=== PATIENT | male | born 1975 | race Two or more races ===

== ENCOUNTER 2020-02-26 08:00 | Observation (INO) | payer SELFPAY ==
[~2020-02-26] VITALS: Ht 170.2 cm; Wt 96.4 kg
--- NOTE | 2020-02-26 08:12 | PHYS DOC ---
General Adult HPI: HPI: Patient is a 44 year old male presenting to the ED with a chief complaint of chest pressure. 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 Patient states that he has a history of hypertension and drinks alcohol daily. Patient states that the pain is in the left side of his chest radiating up his left jaw and left upper extremity. Patient states that currently the pain is not intense but that he can still feel it in his chest. Patient denies nausea, shortness of breath, sweating. EMS state that he was given Aspirin 324 mg PATIENT ESCORT to ED. Review of Systems: Review of Systems: Constitutional: Denies fever or chills. [] Eyes: Denies change in visual acuity. [] HENT: Denies nasal congestion or sore throat. [] Respiratory: Denies cough or shortness of breath. [] Cardiovascular: Complains of chest pain. [] GI: Denies abdominal pain, nausea, vomiting, bloody stools or diarrhea. [] : Denies dysuria. [] Musculoskeletal: Denies back pain or joint pain. [] Integument: Denies rash. [] Neurologic: Denies headache, focal weakness or sensory changes. [] Heart Score: HEART Score for Chest Pain: HEART Score for Chest Pain Response (Comments) Value History Highly Suspicious 2 ECG Normal 0 Age >45 - < 65 1 Risk Factors 1 or 2 Risk Factors 1 Troponin < Normal Limit 0 Total 4 Risk Factors: Risk Factors: DM, Current or recent (<one month) smoker, HTN, HLP, family history of CAD, obesity. Risk Scores: Score 0 - 3: 2.5% MACE over next 6 weeks - Discharge Home Score 4 - 6: 20.3% MACE over next 6 weeks - Admit for Clinical Observation Score 7 - 10: 72.7% MACE over next 6 weeks - Early Invasive Strategies Physical Exam: PE: Constitutional: Well developed, well nourished, no acute distress, non-toxic appearance. [] HENT: Normocephalic, atraumatic Eyes: EOMI Neck: Normal range of motion, Supple Cardiovascular:Heart rate regular rhythm Lungs & Thorax: Bilateral breath sounds clear to auscultation [] Abdomen: Bowel sounds normal, soft, no tenderness Extremities: No tenderness, ROM intact Neurologic: Alert and oriented X 3 EKG: EKG: EKG interpretation: 8: 04 AM on 02/26/2020 HR: 58 Sinus rhythm Regular intervals Leftward axis Nonspecific ST changes No STEMI Radiology/Procedures: Radiology/Procedures: [] Impression: Chest x-ray shows no acute cardiopulmonary process. Course & Med Decision Making: Course & Med Decision Making Pertinent Labs and Imaging studies reviewed. (See chart for details) EKG shows no acute changes. Labs are within normal limits. Troponin is negative. Chest x-ray shows no acute disease. Discussed results and plan of care with patient. Patient states that the pain started about 2 hours prior to arrival to the ER. Patient has never had a stress test. I think patient should be admitted to observation to get a cardiac stress test. We will discuss case with hospitalist service. Discussed case with Dr Zhang who accepts admission. Jessie Disclaimer: Jessie Disclaimer: This electronic medical record was generated, in whole or in part, using a voice recognition dictation system. Departure Departure Impression: Primary Impression: Chest pain Disposition: ADMITTED INPATIENT Admitting Physician: HUMA Condition: STABLE Justicifation of Admission Dx: Justifications for Admission: Justification of Admission Dx: Yes Angina: New-Onset MELISSA HUTCHISON DO Feb 26, 2020 08:12
[2020-02-26 08:18] LABS: BASO % 1 % (0-3); EOS # 0.3 x10^3/uL (0.0-0.7); EOS % 5 % (0-3); HEMATOCRIT 43.3 % (39.0-53.0); HEMOGLOBIN 15.2 g/dL (13.0-17.5); LYMPH # 1.8 x10^3/uL (1.0-4.8); LYMPH % 30 % (24-48); MEAN CORPUSCULAR HEMOGLOBIN 32 pg (25-35); MEAN CORPUSCULAR HGB CONC 35 g/dL (31-37); MEAN CORPUSCULAR VOLUME 91 fL (79-100); MONO # 0.4 x10^3/uL (0.0-1.1); MONO % 6 % (0-9); NEUT # 3.5 x10^3/uL (1.8-7.7); NEUT % 59 % (31-73); PLATELET COUNT 218 x10^3/uL (140-400); RED BLOOD COUNT 4.77 x10^6/uL (4.30-5.70); RED CELL DISTRIBUTION WIDTH 13.4 % (11.5-14.5); WHITE BLOOD COUNT 5.9 x10^3/uL (4.0-11.0)
[2020-02-26 08:27] LABS: PROTHROMBIN TIME PATIENT 12.3 SEC (11.7-14.0)
[2020-02-26 08:29] LABS: CALCIUM 8.6 mg/dL (8.5-10.1); CREATININE 1.1 mg/dL (0.7-1.3); GFR 72.4
[2020-02-26 08:35] LABS: ALBUMIN/GLOBULIN RATIO 1.1 (1.0-1.7); TOTAL BILIRUBIN 0.5 mg/dL (0.2-1.0); TOTAL PROTEIN 7.7 g/dL (6.4-8.2)
--- NOTE | 2020-02-26 08:40 | RAD ---
CHEST PA LATERAL History: Reason: chest pain / Spl. Instructions: / History: Comparison: None. Findings: No consolidation or pleural effusion. Normal heart size. No pneumothorax. Impression: 1. No acute cardiopulmonary process. Electronically signed by: Sharif Medina DO (02/26/2020 8:37 AM) [id number]
--- NOTE | 2020-02-26 09:33 | PDOC1 ---
History and Physical Date of Admission Date of Admission DATE: 02/26/20 TIME: 09:32 Identification/Chief Complaint Chief Complaint Chest pain Source Source: Patient History of Present Illness History of Present Illness Mr. 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 He was given ASA 325 mg in route and pain resolved. Pain did not radiate no associated shortness of breath he has never had an episode like this before. No family hi story of CAD that he knows of though his mother does have hypertension. Initial EKG was NSR and troponin negative. On ROS he drinks 11 [place] Light cans per day. Non-smoker. Past Medical History Cardiovascular: HTN Past Surgical History Past Surgical History: Other (Right eye) Family History Family History: Hypertension Social History Smoke: No ALCOHOL: heavy Drugs: None Current Problem List Problem List Problems Medical Problems: (1) Chest pain Status: Acute Allergies Allergies: Coded Allergies: No Known Drug Allergies (Unverified , 02/26/20) ROS General: No: Chills, Night Sweats, Fatigue, Malaise, Appetite, Other PSYCHOLOGICAL ROS: No: Anxiety, Behavioral Disorder, Concentration difficultie, Decreased libido, Depression, Disorientation, Hallucinations, Hostility, Irritablity, Memory difficulties, Mood Swings, Obsessive thoughts, Physical abuse, Sexual abuse, Sleep disturbances, Suicidal ideation, Other Eyes: No Blurry vision, No Decreased vision, No Double vision, No Dry eyes, No Excessive tearing, No Eye Pain, No Itchy Eyes, No Loss of vision, No Photophobia, No Scotomata, No Uses contacts, No Uses glasses, No Other HEENT: No: Heacaches, Visual Changes, Hearing change, Nasal congestion, Nasal discharge, Oral lesions, Sinus pain, Sore Throat, Epistaxis, Sneezing, Snoring, Tinnitus, Vertigo, Vocal changes, Other ALLERGY AND IMMUNOLOGY: No: Hives, Insect Bite Sensitivity, Itchy/Watery Eyes, Nasal Congestion, Post Nasal Drip, Seasonal Allergies, Other Hematological and Lymphatic: No: Bleeding Problems, Blood Clots, Blood Transfusions, Brusing, Night Sweats, Pallor, Swollen Lymph Nodes, Other ENDOCRINE: No: Breast Changes, Galactorrhea, Hair Pattern Changes, Hot Flashes, Malaise/lethargy, Mood Swings, Palpitations, Polydipsia/polyuria, Skin Changes, Temperature Intolerance, Unexpected Weight Changes, Other Breast: No New/Changing Breast Lumps, No Nipple changes, No Nipple discharge, No Other Respiratory: No: Cough, Hemoptysis, Orthopnea, Pleuritic Pain, Shortness of breath, SOB with excertion, Sputum Changes, Stridor, Tachypnea, Wheezing, Other Cardiovascular: No Chest Pain, No Palpitations, No Orthopnea, No Paroxysmal Noc. Dyspnea, No Edema, No Lt Headedness, No Other Gastrointestinal: No Nausea, No Vomiting, No Abdominal Pain, No Diarrhea, No Constipation, No Melena, No Hematochezia, No Other Genitourinary: No Dysuria, No Frequency, No Incontinence, No Hematuria, No Retention, No Discharge, No Urgency, No Pain, No Flank Pain, No Other, No , No , No , No , No , No , No Musculoskeletal: No Gait Disturbance, No Joint Pain, No Joint Stiffness, No Joint Swelling, No Muscle Pain, No Muscular Weakness, No Pain In:, No Swelling In:, No Other Neurological: No Behavorial Changes, No Bowel/Bladder ControlChng, No Confusion, No Dizziness, No Gait Disturbance, No Headaches, No Impaired Coord/balance, No Memory Loss, No Numbness/Tingling, No Seizures, No Speech Problems, No Tremors, No Visual Changes, No Weakness, No Other Skin: No Dry Skin, No Eczema, No Hair Changes, No Lumps, No Mole Changes, No Mottling, No Nail Changes, No Pruritus, No Rash, No Skin Lesion Changes, No Other, No Acne Physical Exam General: Alert, Oriented X3, Cooperative, No acute distress HEENT: Atraumatic, PERRLA, EOMI, Mucous membr. moist/pink Lungs: Clear to auscultation, Normal air movement Heart: S1S2, RRR, no thrills, no rubs, no gallops, no murmurs Abdomen: Normal bowel sounds, Soft, No tenderness, No hepatosplenomegaly, No masses Rectal Exam: not examined Extremities: No clubbing, No cyanosis, No edema, Normal pulses, No tenderness/swelling Skin: No rashes, No breakdown, No significant lesion Neuro: Normal gait, Normal speech, Strength at 5/5 X4 ext, Normal tone, Sensation intact, Cranial nerves 3-12 NL, Reflexes 2+ Psych/Mental Status: Mental status NL, Mood NL Vitals Vitals Vital Signs Date Time Temp Pulse Resp B/P (MAP) Pulse Ox O2 Delivery O2 Flow Rate FiO2 02/26/20 08:00 98.2 57 20 163/88 (113) 98 Room Air 98.2 Labs Labs Laboratory Tests Test 02/26/20 08:12 White Blood Count 5.9 x10^3/uL (4.0-11.0) Red Blood Count 4.77 x10^6/uL (4.30-5.70) Hemoglobin 15.2 g/dL (13.0-17.5) Hematocrit 43.3 % (39.0-53.0) Mean Corpuscular Volume 91 fL (79-100) Mean Corpuscular Hemoglobin 32 pg (25-35) Mean Corpuscular Hemoglobin Concent 35 g/dL (31-37) Red Cell Distribution Width 13.4 % (11.5-14.5) Platelet Count 218 x10^3/uL (140-400) Neutrophils (%) (Auto) 59 % (31-73) Lymphocytes (%) (Auto) 30 % (24-48) Monocytes (%) (Auto) 6 % (0-9) Eosinophils (%) (Auto) 5 % (0-3) Basophils (%) (Auto) 1 % (0-3) Neutrophils # (Auto) 3.5 x10^3/uL (1.8-7.7) Lymphocytes # (Auto) 1.8 x10^3/uL (1.0-4.8) Monocytes # (Auto) 0.4 x10^3/uL (0.0-1.1) Eosinophils # (Auto) 0.3 x10^3/uL (0.0-0.7) Basophils # (Auto) 0.0 x10^3/uL (0.0-0.2) Prothrombin Time 12.3 SEC (11.7-14.0) Prothromb Time International Ratio 1.0 (0.8-1.1) Sodium Level 139 mmol/L (136-145) Potassium Level 4.0 mmol/L (3.5-5.1) Chloride Level 104 mmol/L (98-107) Carbon Dioxide Level 25 mmol/L (21-32) Anion Gap 10 (6-14) Blood Urea Nitrogen 13 mg/dL (8-26) Creatinine 1.1 mg/dL (0.7-1.3) Estimated GFR (Cockcroft-Gault) 72.4 BUN/Creatinine Ratio 12 (6-20) Glucose Level 166 mg/dL (70-99) Calcium Level 8.6 mg/dL (8.5-10.1) Total Bilirubin 0.5 mg/dL (0.2-1.0) Aspartate Amino Transf (AST/SGOT) 32 U/L (15-37) Alanine Aminotransferase (ALT/SGPT) 25 U/L (16-63) Alkaline Phosphatase 57 U/L (46-116) Troponin I Quantitative < 0.017 ng/mL (0.000-0.055) VU-Oye-A-Type Natriuretic Peptide 29 pg/mL (0-124) Total Protein 7.7 g/dL (6.4-8.2) Albumin 4.0 g/dL (3.4-5.0) Albumin/Globulin Ratio 1.1 (1.0-1.7) Lipase 156 U/L (73-393) Laboratory Tests Test 02/26/20 08:12 White Blood Count 5.9 x10^3/uL (4.0-11.0) Red Blood Count 4.77 x10^6/uL (4.30-5.70) Hemoglobin 15.2 g/dL (13.0-17.5) Hematocrit 43.3 % (39.0-53.0) Mean Corpuscular Volume 91 fL (79-100) Mean Corpuscular Hemoglobin 32 pg (25-35) Mean Corpuscular Hemoglobin Concent 35 g/dL (31-37) Red Cell Distribution Width 13.4 % (11.5-14.5) Platelet Count 218 x10^3/uL (140-400) Neutrophils (%) (Auto) 59 % (31-73) Lymphocytes (%) (Auto) 30 % (24-48) Monocytes (%) (Auto) 6 % (0-9) Eosinophils (%) (Auto) 5 % (0-3) Basophils (%) (Auto) 1 % (0-3) Neutrophils # (Auto) 3.5 x10^3/uL (1.8-7.7) Lymphocytes # (Auto) 1.8 x10^3/uL (1.0-4.8) Monocytes # (Auto) 0.4 x10^3/uL (0.0-1.1) Eosinophils # (Auto) 0.3 x10^3/uL (0.0-0.7) Basophils # (Auto) 0.0 x10^3/uL (0.0-0.2) Prothrombin Time 12.3 SEC (11.7-14.0) Prothromb Time International Ratio 1.0 (0.8-1.1) Sodium Level 139 mmol/L (136-145) Potassium Level 4.0 mmol/L (3.5-5.1) Chloride Level 104 mmol/L (98-107) Carbon Dioxide Level 25 mmol/L (21-32) Anion Gap 10 (6-14) Blood Urea Nitrogen 13 mg/dL (8-26) Creatinine 1.1 mg/dL (0.7-1.3) Estimated GFR (Cockcroft-Gault) 72.4 BUN/Creatinine Ratio 12 (6-20) Glucose Level 166 mg/dL (70-99) Calcium Level 8.6 mg/dL (8.5-10.1) Total Bilirubin 0.5 mg/dL (0.2-1.0) Aspartate Amino Transf (AST/SGOT) 32 U/L (15-37) Alanine Aminotransferase (ALT/SGPT) 25 U/L (16-63) Alkaline Phosphatase 57 U/L (46-116) Troponin I Quantitative < 0.017 ng/mL (0.000-0.055) WF-Ltx-W-Type Natriuretic Peptide 29 pg/mL (0-124) Total Protein 7.7 g/dL (6.4-8.2) Albumin 4.0 g/dL (3.4-5.0) Albumin/Globulin Ratio 1.1 (1.0-1.7) Lipase 156 U/L (73-393) Images Images CXR - No consolidation or pleural effusion. Normal heart size. No pneumothorax. Impression: 1. No acute cardiopulmonary process. VTE Prophylaxis Ordered VTE Prophylaxis Devices: No VTE Pharmacological Prophylaxi: No Assessment/Plan Assessment/Plan A/P: Chest pain - improved with ASA, no further pain Alcohol use disorder - drinking 11 bud light cans per day, counseled on cutting back, no hx of withdrawal, he will cut back Obesity - counseled on weight loss, diet exercise FEN - PPX - SCDs FULL CODE Dispo - observation for chest pain Justicifation of Admission Dx: Justifications for Admission: Justification of Admission Dx: N/A Angina: New-Onset FOSTER BUSTOS MD Feb 26, 2020 09:33
[2020-02-26] MEDS ORDERED: DEXTROSE 50% 25 GM / 50ML DISP.SYRIN. IV PRN (09:45)
[2020-02-26 10:25] VITALS: BP 121/73
--- NOTE | 2020-02-26 10:30 | NUR ---
Patient arrived to room 261 via wheelchair from ER at 1030. Patient A&OX4. VSS. No complaints of pain at this time. The patient, REYNA PEARL, 44 y/o, M admitted by FOSTER BUSTOS MD, was given written information regarding hospital policies, unit procedures and contact persons. Valuables were checked and noted. Will continue to monitor.
--- NOTE | 2020-02-26 11:18 | EKG ---
[facility] [address] [place] [address] Test Date: 2020-02-26 Test Time: 08:04:06 Pat Name: REYNA PEARL Department: Room: Gender: M System Software Programmer: : 1975 Requested By: MELISSA HUTCHISON Order Number: [id number] Reading MD: Measurements Intervals [place] Rate: 58 P: 38 SC: 136 QRS: -28 QRSD: 92 T: 14 QT: 450 QTc: 441 Interpretive Statements SINUS RHYTHM LEFTWARD AXIS S1,S2,S3 PATTERN QRS(T) CONTOUR ABNORMALITY CONSIDER ANTEROSEPTAL MYOCARDIAL DAMAGE CONSIDER INFERIOR MYOCARDIAL DAMAGE POSSIBLY ABNORMAL ECG RI6.01 No previous ECG available for comparison
[2020-02-26] MEDS: INSULIN LISPRO 300 UNITS/3 ML VIAL. SQ SCH ×3 (11:30→21:00)
--- NOTE | 2020-02-26 11:39 | PDOC2 ---
AUGUST WINKLER CUSTOMER PROFESSIONAL 02/26/20 1139: CARDIAC CONSULT DATE OF CONSULT Date of Consult DATE: 02/26/20 TIME: 11:35 REASON FOR CONSULT Reason for Consult: Chest pain REFERRING PHYSICIAN Referring Physician: Dr. Zhang SOURCE Source: Chart review, Patient HISTORY OF PRESENT ILLNESS HISTORY OF PRESENT ILLNESS This is a 44 yo male who presented secondary to chest pain. Patient reports pain began this morning about 7:30 am. Located in his left chest. Describes as pressure. Radiated down his left arm. Associated with diaphoresis, shortness of breath, and mild nausea. No palpitations or dizziness. Pain did not resolved so he can to the ED for further evaluation and treatment. Cannot recall how duration of pain. Presently CP free. 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 PAST MEDICAL HISTORY Cardiovascular: HTN GI: GERD PAST SURGICAL HISTORY Past Surgical History: No pertinent history FAMILY HISTORY Family History: Other (noncontributory ) SOCIAL HISTORY Smoke: No ALCOHOL: other (6 beers per day) Drugs: None Lives: Alone ALLERGIES ALLERGIES: Coded Allergies: No Known Drug Allergies (Unverified , 02/26/20) ROS Review of System 14 point ROS conducted with pertinent positives noted above in HPI. PHYSICAL EXAM General: Alert, Oriented X3, Cooperative, No acute distress HEENT: Atraumatic, Mucous membr. moist/pink Lungs: Clear to auscultation, Normal air movement Heart: Regular rate Abdomen: Soft, No hepatosplenomegaly Extremities: No edema, Normal pulses Skin: No breakdown, No significant lesion Neuro: Normal speech, Sensation intact Psych/Mental Status: Mental status NL, Mood NL MUSCULOSKELETAL: No deformity VITALS/I&O VITALS/I&O: Vital Signs Date Time Temp Pulse Resp B/P (MAP) Pulse Ox O2 Delivery O2 Flow Rate FiO2 02/26/20 10:20 55 20 127/44 (71) 99 Room Air 02/26/20 08:00 98.2 98.2 LABS Lab: Laboratory Tests Test 02/26/20 08:12 White Blood Count 5.9 x10^3/uL (4.0-11.0) Red Blood Count 4.77 x10^6/uL (4.30-5.70) Hemoglobin 15.2 g/dL (13.0-17.5) Hematocrit 43.3 % (39.0-53.0) Mean Corpuscular Volume 91 fL (79-100) Mean Corpuscular Hemoglobin 32 pg (25-35) Mean Corpuscular Hemoglobin Concent 35 g/dL (31-37) Red Cell Distribution Width 13.4 % (11.5-14.5) Platelet Count 218 x10^3/uL (140-400) Neutrophils (%) (Auto) 59 % (31-73) Lymphocytes (%) (Auto) 30 % (24-48) Monocytes (%) (Auto) 6 % (0-9) Eosinophils (%) (Auto) 5 % (0-3) H Basophils (%) (Auto) 1 % (0-3) Neutrophils # (Auto) 3.5 x10^3/uL (1.8-7.7) Lymphocytes # (Auto) 1.8 x10^3/uL (1.0-4.8) Monocytes # (Auto) 0.4 x10^3/uL (0.0-1.1) Eosinophils # (Auto) 0.3 x10^3/uL (0.0-0.7) Basophils # (Auto) 0.0 x10^3/uL (0.0-0.2) Prothrombin Time 12.3 SEC (11.7-14.0) Prothrombin Time INR 1.0 (0.8-1.1) Sodium Level 139 mmol/L (136-145) Potassium Level 4.0 mmol/L (3.5-5.1) Chloride Level 104 mmol/L (98-107) Carbon Dioxide Level 25 mmol/L (21-32) Anion Gap 10 (6-14) Blood Urea Nitrogen 13 mg/dL (8-26) Creatinine 1.1 mg/dL (0.7-1.3) Estimated GFR (Cockcroft-Gault) 72.4 BUN/Creatinine Ratio 12 (6-20) Glucose Level 166 mg/dL (70-99) H Calcium Level 8.6 mg/dL (8.5-10.1) Total Bilirubin 0.5 mg/dL (0.2-1.0) Aspartate Amino Transferase (AST) 32 U/L (15-37) Alanine Aminotransferase (ALT) 25 U/L (16-63) Alkaline Phosphatase 57 U/L (46-116) Troponin I Quantitative < 0.017 ng/mL (0.000-0.055) UN-Mmh-E-Type Natriuretic Peptide 29 pg/mL (0-124) Total Protein 7.7 g/dL (6.4-8.2) Albumin 4.0 g/dL (3.4-5.0) Albumin/Globulin Ratio 1.1 (1.0-1.7) Lipase 156 U/L (73-393) Laboratory Tests 02/26/20 08:12 Laboratory Tests 02/26/20 08:12 ASSESSMENT/PLAN ASSESSMENT/PLAN 1. Chest pain,mixed features; initial trop negative 2. Hypertension; controlled 3. Bradycardia, sinus; lowest 49 noted. No pauses 4. GERD 5. ETOH misuse; 6 beers daily Recommendations Trend trop Lipids ASA Echo to assess LV systolic function Avoid AV sofy blocking agents. Further pending above. MARLEN HYMAN MD 02/26/20 1707: CARDIAC CONSULT ASSESSMENT/PLAN ASSESSMENT/PLAN Patient seen and examined. Agree with PIPE AND TEST SUPERVISOR's assessment and plan. Chest pain with mixed features. Cardiac enzymes negative so far. Agree with 2D echo to assess LV function and rule out wall motion abnormalities. Ischemic work-up could be considered as an outpatient. Monitor telemetry for evidence for SSS Thank you for your consultation. AUGUST WINKLER APRN Feb 26, 2020 11:39 MARLEN HYMAN MD Feb 26, 2020 17:07
[2020-02-26] MEDS ORDERED: LISI-334 PO (11:57)
[2020-02-26] MEDS ORDERED: METO25TA4 PO (11:57)
[2020-02-26 12:10] LABS: CHOLESTEROL/HDL RATIO 4.4
[2020-02-26 15:00] VITALS: BP 124/83
[2020-02-26 19:56] VITALS: BP 128/78
[2020-02-26 22:19] VITALS: BP 134/80
--- NOTE | 2020-02-26 22:23 | NUR ---
bs 83, snack given, no sliding scale. arnold
[2020-02-27 00:07] LABS: HEMOGLOBIN A1C 5.4 % (4.8-5.6)
[2020-02-27 02:29] VITALS: BP 136/84
[2020-02-27 07:00] VITALS: BP 141/88
[2020-02-27] MEDS: INSULIN LISPRO 300 UNITS/3 ML VIAL. SQ SCH ×2 (07:30→11:30)
--- NOTE | 2020-02-27 09:25 | PDOC ---
PROGRESS NOTES Chief Complaint Chief Complaint A/P: Chest pain - improved with ASA, no further pain Alcohol use disorder - drinking 11 bud light cans per day, counseled on cutting back, no hx of withdrawal, he will cut back Obesity - counseled on weight loss, diet exercise FEN - PPX - SCDs FULL CODE Dispo - observation for chest pain History of Present Illness History of Present Illness Mr. 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 He was given ASA 325 mg in route and pain resolved. Pain did not radiate no associated shortness of breath he has never had an episode like this before. No family history of CAD that he knows of though his mother does have hypertension. Initial EKG was NSR and troponin negative. On ROS he drinks 11 [place] Light cans per day. Non-smoker. A1c 5.4. Troponin x3 negative. CP free. Wishes for home d/c. Echo: The left ventricular systolic function is normal and the ejection fraction is within normal range. The Ejection Fraction is 50-55%. There is normal LV segmental wall motion. Instructed to hold his metoprolol due to persistent bradycardia Consults: Cardiology Vitals Vitals Vital Signs Date Time Temp Pulse Resp B/P (MAP) Pulse Ox O2 Delivery O2 Flow Rate FiO2 02/27/20 07:00 97.6 57 16 141/88 (105) 95 Room Air 97.6 Physical Exam General: Alert, Oriented X3, Cooperative, No acute distress Heart: Regular rate Abdomen: Soft, No hepatosplenomegaly Extremities: No edema, Normal pulses Skin: No breakdown, No significant lesion Labs LABS Laboratory Tests Test 02/26/20 11:42 02/26/20 12:18 02/26/20 17:39 02/26/20 19:00 Troponin I Quantitative < 0.017 ng/mL (0.000-0.055) < 0.017 ng/mL (0.000-0.055) Glucose (Fingerstick) 101 mg/dL (70-99) 151 mg/dL (70-99) Test 02/26/20 21:37 02/27/20 08:16 Glucose (Fingerstick) 83 mg/dL (70-99) 112 mg/dL (70-99) Assessment and Plan Assessmemt and Plan Problems Medical Problems: (1) Chest pain Status: Acute Comment Review of Relevant I have reviewed the following items ofe (where applicable) has been applied. Labs Laboratory Tests Test 02/26/20 08:12 02/26/20 11:42 02/26/20 12:18 02/26/20 17:39 White Blood Count 5.9 x10^3/uL (4.0-11.0) Red Blood Count 4.77 x10^6/uL (4.30-5.70) Hemoglobin 15.2 g/dL (13.0-17.5) Hematocrit 43.3 % (39.0-53.0) Mean Corpuscular Volume 91 fL (79-100) Mean Corpuscular Hemoglobin 32 pg (25-35) Mean Corpuscular Hemoglobin Concent 35 g/dL (31-37) Red Cell Distribution Width 13.4 % (11.5-14.5) Platelet Count 218 x10^3/uL (140-400) Neutrophils (%) (Auto) 59 % (31-73) Lymphocytes (%) (Auto) 30 % (24-48) Monocytes (%) (Auto) 6 % (0-9) Eosinophils (%) (Auto) 5 % (0-3) Basophils (%) (Auto) 1 % (0-3) Neutrophils # (Auto) 3.5 x10^3/uL (1.8-7.7) Lymphocytes # (Auto) 1.8 x10^3/uL (1.0-4.8) Monocytes # (Auto) 0.4 x10^3/uL (0.0-1.1) Eosinophils # (Auto) 0.3 x10^3/uL (0.0-0.7) Basophils # (Auto) 0.0 x10^3/uL (0.0-0.2) Prothrombin Time 12.3 SEC (11.7-14.0) Prothromb Time International Ratio 1.0 (0.8-1.1) Sodium Level 139 mmol/L (136-145) Potassium Level 4.0 mmol/L (3.5-5.1) Chloride Level 104 mmol/L (98-107) Carbon Dioxide Level 25 mmol/L (21-32) Anion Gap 10 (6-14) Blood Urea Nitrogen 13 mg/dL (8-26) Creatinine 1.1 mg/dL (0.7-1.3) Estimated GFR (Cockcroft-Gault) 72.4 BUN/Creatinine Ratio 12 (6-20) Glucose Level 166 mg/dL (70-99) Hemoglobin A1c 5.4 % (4.8-5.6) Calcium Level 8.6 mg/dL (8.5-10.1) Total Bilirubin 0.5 mg/dL (0.2-1.0) Aspartate Amino Transf (AST/SGOT) 32 U/L (15-37) Alanine Aminotransferase (ALT/SGPT) 25 U/L (16-63) Alkaline Phosphatase 57 U/L (46-116) Troponin I Quantitative < 0.017 ng/mL (0.000-0.055) < 0.017 ng/mL (0.000-0.055) NJ-Gib-T-Type Natriuretic Peptide 29 pg/mL (0-124) Total Protein 7.7 g/dL (6.4-8.2) Albumin 4.0 g/dL (3.4-5.0) Albumin/Globulin Ratio 1.1 (1.0-1.7) Triglycerides Level 162 mg/dL (0-150) Cholesterol Level 151 mg/dL (0-200) LDL Cholesterol, Calculated 85 mg/dL (0-100) VLDL Cholesterol, Calculated 32 mg/dL (0-40) Non-HDL Cholesterol Calculated 117 mg/dL (0-129) HDL Cholesterol 34 mg/dL (40-60) Cholesterol/HDL Ratio 4.4 Lipase 156 U/L (73-393) Thyroid Stimulating Hormone (TSH) 0.862 uIU/mL (0.358-3.74) Glucose (Fingerstick) 101 mg/dL (70-99) 151 mg/dL (70-99) Test 02/26/20 19:00 02/26/20 21:37 02/27/20 08:16 Troponin I Quantitative < 0.017 ng/mL (0.000-0.055) Glucose (Fingerstick) 83 mg/dL (70-99) 112 mg/dL (70-99) Laboratory Tests Test 02/26/20 11:42 02/26/20 12:18 02/26/20 17:39 02/26/20 19:00 Troponin I Quantitative < 0.017 ng/mL (0.000-0.055) < 0.017 ng/mL (0.000-0.055) Glucose (Fingerstick) 101 mg/dL (70-99) 151 mg/dL (70-99) Test 02/26/20 21:37 02/27/20 08:16 Glucose (Fingerstick) 83 mg/dL (70-99) 112 mg/dL (70-99) Medications Current Medications Insulin Human Lispro (HumaLOG) 0-7 UNITS TIDACHC SQ ; Start 02/26/20 at 11:30 Dextrose (Dextrose 50%-Water Syringe) 12.5 gm PRN Q15MIN PRN IV SEE COMMENTS; Start 02/26/20 at 09:45 Active Scripts Active Reported Metoprolol Tartrate 25 Mg Tablet 0.5 Tab PO BID Lisinopril 20 Mg Tablet 1 Tab PO DAILY Vitals/I & O Vital Sign - Last 24 Hours 02/26/20 02/26/20 02/26/20 02/26/20 10:20 10:25 10:45 15:00 Temp 98.2 98.3 98.2 98.3 Pulse 55 57 52 Resp 20 16 16 B/P (MAP) 127/44 (71) 121/73 (89) 124/83 (97) Pulse Ox 99 98 99 O2 Delivery Room Air Room Air Room Air Room Air 02/26/20 02/26/20 02/26/20 02/27/20 19:56 20:00 22:19 02:29 Temp 98.1 98.3 98.2 98.1 98.3 98.2 Pulse 56 57 55 Resp 18 20 18 B/P (MAP) 128/78 (95) 134/80 (98) 136/84 (101) Pulse Ox 98 97 96 O2 Delivery Room Air Room Air Room Air Room Air 02/27/20 07:00 Temp 97.6 97.6 Pulse 57 Resp 16 B/P (MAP) 141/88 (105) Pulse Ox 95 O2 Delivery Room Air Intake and Output 02/26/20 02/26/20 02/27/20 15:00 23:00 07:00 Intake Total 0 ml 1100 ml 280 ml Output Total 0 ml Balance 0 ml 1100 ml 280 ml FOSTER BUSTOS MD Feb 27, 2020 09:25
--- NOTE | 2020-02-27 09:39 | CARD ---
MR#: [id number] Date of Study: 02/27/2020 Ordering Physician: AUGUST WINKLER, Referring Physician: AUGUST WINKLER, Tech: Etta Thompson APPROVED REPORT EXAM: Two-dimensional and M-mode echocardiogram with Doppler and color Doppler. Other Information Quality : AverageHR: 56bpm INDICATION Chest Pain 2D DIMENSIONS RVDd3.6 (2.9-3.5cm)Left Atrium(2D)4.1 (1.6-4.0cm) IVSd1.1 (0.7-1.1cm)Aortic Root(2D)3.5 (2.0-3.7cm) LVDd5.2 (3.9-5.9cm)LVOT Diameter2.2 (1.8-2.4cm) PWd1.0 (0.7-1.1cm)LVDs3.5 (2.5-4.0cm) FS (%) 32.1 %SV78.2 ml LVEF(%)59.9 (>50%) Aortic Valve AoV Peak Saul.108.3cm/sAoV VTI23.6cm AO Peak GR.4.7mmHgLVOT Peak Saul.92.9cm/s LVOT VTI 20.73cmAO Mean GR.2mmHg EMY (VMAX)2.85px9FHS (VTI)3.36cm2 Mitral Valve MV E Jltynzhw92.8cm/sMV DECEL RVSW876zp MV A Whzcyvmb41.8cm/sMV E Mean Gr.1mmHg MV YXE60ovG/A Ratio2.2 MVA (PHT)4.52cm2 TDI E/Lateral E'7.0E/Medial E'6.9 Pulmonary Valve PV Peak Bqvdzhcd36.3cm/sPV Peak Grad.3mmHg Tricuspid Valve TR P. Cawifvmc905ca/sRAP CVBREEMG4ehFe TR Peak Gr.18xuDsCURO32jcYi Pulmonary Vein S1 Ffegyvnc59.2cm/sD2 Pihkzgpc62.7cm/s LEFT VENTRICLE The left ventricle is normal size. There is borderline concentric left ventricular hypertrophy. The l eft ventricular systolic function is normal and the ejection fraction is within normal range. The Eje ction Fraction is 50-55%. There is normal LV segmental wall motion. The left ventricular diastolic fu nction and filling is normal for age. RIGHT VENTRICLE The right ventricle is normal size. There is normal right ventricular wall thickness. The right ventr icular systolic function is normal. ATRIA The left atrium size is normal. The right atrium size is normal. The interatrial septum is intact wit h no evidence for an atrial septal defect or patent foramen ovale as noted on 2-D or Doppler imaging. AORTIC VALVE The aortic valve is normal in structure and function. Doppler and Color Flow revealed no significant aortic regurgitation. There is no significant aortic valvular stenosis. MITRAL VALVE The mitral valve is normal in structure and function. There is no evidence of mitral valve prolapse. There is no mitral valve stenosis. Doppler and Color-flow revealed trace mitral regurgitation. TRICUSPID VALVE The tricuspid valve is normal in structure and function. Doppler and Color Flow revealed trace tricus pid regurgitation with an estimated PAP of 33 mmHg. There is no tricuspid valve stenosis. PULMONIC VALVE The pulmonic valve is not well visualized. Doppler and Color Flow revealed trace pulmonic valvular re gurgitation. There is no pulmonic valvular stenosis. GREAT VESSELS The aortic root is normal in size. The ascending aorta is normal in size. The IVC is normal in size a nd collapses >50% with inspiration. PERICARDIAL EFFUSION There is no evidence of significant pericardial effusion. Critical Notification Critical Value: No <Conclusion> The left ventricular systolic function is normal and the ejection fraction is within normal range. Th e Ejection Fraction is 50-55%. There is normal LV segmental wall motion. Signed by : Boris Jarquin, Electronically Approved : 02/27/2020 09:39:27
[2020-02-27 11:00] VITALS: BP 131/82
--- NOTE | 2020-02-27 11:09 | PDOC ---
CARDIO Progress Notes Date and Time Date of Service 02/27/20 Time of Evaluation 1030 Subjective Subjective: No Chest Pain, No shortness of breath, No Palpitations, No Dizziness Vitals Vitals Vital Signs Date Time Temp Pulse Resp B/P (MAP) Pulse Ox O2 Delivery O2 Flow Rate FiO2 02/27/20 07:00 97.6 57 16 141/88 (105) 95 Room Air 97.6 Weight Weight [ ] Input and Output Intake and Output Intake and Output 02/27/20 07:00 Intake Total 1380 ml Output Total 0 ml Balance 1380 ml Intake Oral 1380 ml Output Urine Total 0 ml # Voids 3 Laboratory Labs Laboratory Tests Test 02/26/20 11:42 02/26/20 12:18 02/26/20 17:39 02/26/20 19:00 Troponin I Quantitative < 0.017 ng/mL (0.000-0.055) < 0.017 ng/mL (0.000-0.055) Glucose (Fingerstick) 101 mg/dL (70-99) 151 mg/dL (70-99) Test 02/26/20 21:37 02/27/20 08:16 Glucose (Fingerstick) 83 mg/dL (70-99) 112 mg/dL (70-99) Physical Exam HEENT: Neck Supple W Full Motion Chest: Symmetric LUNGS: Clear to Auscultation Heart: S1S2, RRR, no murmurs Abdomen: Soft N/T Extremities: No Edema Neurology: alert, oriented, follow commands Assessment Assessment 1. Chest pain,mixed features; trop series negative. AMI ruled out. Echo with preserved LV systolic function, no WMA. 2. Hypertension; controlled 3. Bradycardia, sinus; lowest 46 noted. No pauses. Appropriated chronotropic response 4. GERD 5. ETOH misuse; 6 beers daily Recommendations ASA therapy Discontinue metoprolol. Avoid AV sofy blocking agents. Consider outpatient ischemic evaluation Follow up in our office with Dr. Webb. Contact information provided. Okay to discharge from a CV standpoint. Justicifation of Admission Dx: Justifications for Admission: Justification of Admission Dx: N/A Angina: New-Onset CATHIAUGUST PANCHITO Feb 27, 2020 11:09
--- NOTE | 2020-02-27 11:17 | PDOC3 ---
Discharge Summary Visit Information Date of Admission: Feb 26, 2020 Date of Discharge: Feb 27, 2020 Admitting Diagnosis: Chest pain Final Diagnosis Problems Medical Problems: (1) Chest pain Status: Acute Brief Hospital Course Allergies Allergies Coded Allergies Type Severity Reaction Last Updated Verified No Known Drug Allergies 02/26/20 No Vital Signs Vital Signs Date Time Temp Pulse Resp B/P (MAP) Pulse Ox O2 Delivery O2 Flow Rate FiO2 02/27/20 07:00 97.6 57 16 141/88 (105) 95 Room Air 97.6 Lab Results Laboratory Tests Test 02/26/20 08:12 02/26/20 11:42 02/26/20 12:18 02/26/20 17:39 White Blood Count 5.9 x10^3/uL (4.0-11.0) Red Blood Count 4.77 x10^6/uL (4.30-5.70) Hemoglobin 15.2 g/dL (13.0-17.5) Hematocrit 43.3 % (39.0-53.0) Mean Corpuscular Volume 91 fL (79-100) Mean Corpuscular Hemoglobin 32 pg (25-35) Mean Corpuscular Hemoglobin Concent 35 g/dL (31-37) Red Cell Distribution Width 13.4 % (11.5-14.5) Platelet Count 218 x10^3/uL (140-400) Neutrophils (%) (Auto) 59 % (31-73) Lymphocytes (%) (Auto) 30 % (24-48) Monocytes (%) (Auto) 6 % (0-9) Eosinophils (%) (Auto) 5 % (0-3) Basophils (%) (Auto) 1 % (0-3) Neutrophils # (Auto) 3.5 x10^3/uL (1.8-7.7) Lymphocytes # (Auto) 1.8 x10^3/uL (1.0-4.8) Monocytes # (Auto) 0.4 x10^3/uL (0.0-1.1) Eosinophils # (Auto) 0.3 x10^3/uL (0.0-0.7) Basophils # (Auto) 0.0 x10^3/uL (0.0-0.2) Prothrombin Time 12.3 SEC (11.7-14.0) Prothromb Time International Ratio 1.0 (0.8-1.1) Sodium Level 139 mmol/L (136-145) Potassium Level 4.0 mmol/L (3.5-5.1) Chloride Level 104 mmol/L (98-107) Carbon Dioxide Level 25 mmol/L (21-32) Anion Gap 10 (6-14) Blood Urea Nitrogen 13 mg/dL (8-26) Creatinine 1.1 mg/dL (0.7-1.3) Estimated GFR (Cockcroft-Gault) 72.4 BUN/Creatinine Ratio 12 (6-20) Glucose Level 166 mg/dL (70-99) Hemoglobin A1c 5.4 % (4.8-5.6) Calcium Level 8.6 mg/dL (8.5-10.1) Total Bilirubin 0.5 mg/dL (0.2-1.0) Aspartate Amino Transf (AST/SGOT) 32 U/L (15-37) Alanine Aminotransferase (ALT/SGPT) 25 U/L (16-63) Alkaline Phosphatase 57 U/L (46-116) Troponin I Quantitative < 0.017 ng/mL (0.000-0.055) < 0.017 ng/mL (0.000-0.055) MX-Aax-U-Type Natriuretic Peptide 29 pg/mL (0-124) Total Protein 7.7 g/dL (6.4-8.2) Albumin 4.0 g/dL (3.4-5.0) Albumin/Globulin Ratio 1.1 (1.0-1.7) Triglycerides Level 162 mg/dL (0-150) Cholesterol Level 151 mg/dL (0-200) LDL Cholesterol, Calculated 85 mg/dL (0-100) VLDL Cholesterol, Calculated 32 mg/dL (0-40) Non-HDL Cholesterol Calculated 117 mg/dL (0-129) HDL Cholesterol 34 mg/dL (40-60) Cholesterol/HDL Ratio 4.4 Lipase 156 U/L (73-393) Thyroid Stimulating Hormone (TSH) 0.862 uIU/mL (0.358-3.74) Glucose (Fingerstick) 101 mg/dL (70-99) 151 mg/dL (70-99) Test 02/26/20 19:00 02/26/20 21:37 02/27/20 08:16 6/25/20 11:06 Troponin I Quantitative < 0.017 ng/mL (0.000-0.055) Glucose (Fingerstick) 83 mg/dL (70-99) 112 mg/dL (70-99) 122 mg/dL (70-99) Laboratory Tests Test 02/26/20 11:42 02/26/20 12:18 02/26/20 17:39 02/26/20 19:00 Troponin I Quantitative < 0.017 ng/mL (0.000-0.055) < 0.017 ng/mL (0.000-0.055) Glucose (Fingerstick) 101 mg/dL (70-99) 151 mg/dL (70-99) Test 02/26/20 21:37 02/27/20 08:16 02/27/20 11:06 Glucose (Fingerstick) 83 mg/dL (70-99) 112 mg/dL (70-99) 122 mg/dL (70-99) Brief Hospital Course Mr. 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 He was given ASA 325 mg in route and pain resolved. Pain did not radiate no associated shortness of breath he has never had an episode like this before. No family history of CAD that he knows of though his mother does have hypertension. Initial EKG was NSR and troponin negative. On ROS he drinks 11 [place] [employer] cans per day. Non-smoker. A1c 5.4. Troponin x3 negative. CP free. Wishes for home d/c. Echo: The left ventricular systolic function is normal and the ejection fraction is within normal range. The Ejection Fraction is 50-55%. There is normal LV segmental wall motion. Instructed to hold his metoprolol due to persistent bradycardia Consults: Cardiology Problem list: Chest pain - improved with ASA, no further pain Alcohol use disorder - drinking 11 bud light cans per day, counseled on cutting back, no hx of withdrawal, he will cut back Obesity - counseled on weight loss, diet exercise Greater than 30 minutes spent on d/c Discharge Information Condition at Discharge: Improved Follow Up: Weeks (1) Disposition/Orders: D/C to Home Scheduled Lisinopril (Lisinopril) 20 Mg Tablet, 1 TAB PO DAILY for HTN, #30 Ref 5 (Reported) Entered as Reported by: BLANQUITA CUNHA on 02/26/201156 Last Action: New Order on 02/26/201156 by BLANQUITA CUNHA Discontinued Medications Metoprolol Tartrate (Metoprolol Tartrate) 25 Mg Tablet, 0.5 TAB PO BID for HTN, #180 Ref 1 (Reported) Entered as Reported by: BLANQUITA CUNHA on 02/26/201156 Last Action: New Order on 02/26/201156 by BLANQUITA CUNHA Justicifation of Admission Dx: Justifications for Admission: Justification of Admission Dx: N/A Angina: New-Onset FOSTER BUSTOS MD Feb 27, 2020 11:17
--- NOTE | 2020-02-27 12:06 | NUR ---
SS following for discharge planning. SS reviewed pt chart and discussed with pt RN. Pt is from home and is currently on room air. Discharge order on the chart for home with self care.
--- NOTE | 2020-02-27 14:26 | NUR ---
Discharge Note: [facility]ONY PEARL [facility] Discharge instructions and discharge home medications reviewed with Patient and a copy given. All questions have been answered and understanding verbalized. Need to call [facility] cardiology and schedule out-patient stress test once he is receives insurance courage. The following instructions and handouts were given: Stress test, CP, and elevated triglyceride levels. Discontinued iv line and catheter intact. Patient discharged to home with self-care via private vehicle.
== END 2020-02-27 14:33 | disposition home or self-care (01) ==
LOC: ER 08:00 → 2 SOUTH 09:15
PROVIDERS: ADMIT Internal Medicine; ATTEND Internal Medicine
DX: R07.89 Other chest pain (principal); I10 Essential (primary) hypertension; E66.9 Obesity, unspecified; F10.10 Alcohol abuse, uncomplicated; K21.9 Gastro-esophageal reflux disease without esophagitis; R00.1 Bradycardia, unspecified; Z68.33 Body mass index [BMI] 33.0-33.9, adult; Z98.890 Other specified postprocedural states; Z79.899 Other long term (current) drug therapy
CPT/HCPCS: 36415; 71046; 80053; 80061; 82962; 83036; 83690; 83880; 84443; 84484; 85025; 85610; 93005; 93306; 99285; G0378; G0379